=== PATIENT | male | born 1980 ===

== ENCOUNTER 2020-07-05 06:56 | Day surgery (SDC) | payer OTHER ==
[~2020-07-05 06:56] MED LIST: ADDERALL 20 MG20 MG PO; WELLBUTRIN SR200 MG PO
[2020-07-05] MEDS ORDERED: PEPCID AC20 MG PO (15:30)
[2020-07-05] MEDS ORDERED: PERCOCET 5-3251 EACH PO (15:30)
[2020-07-05] MEDS ORDERED: ZOFRAN4 MG PO (15:31)
[2020-07-05] MEDS ORDERED: DICLOFENAC SODI75 MG PO (16:05)
== END 2020-07-05 18:50 | disposition home or self-care (01) ==
LOC: CIR.AMB 06:56
PROVIDERS: ATTEND Surgery
DX: K43.9 Ventral hernia without obstruction or gangrene (principal); K80.10 Calculus of gallbladder with chronic cholecystitis without obstruction; Z20.822 Contact with and (suspected) exposure to COVID-19